=== PATIENT | male | born 1970 | race Caucasian/White ===

== ENCOUNTER 2017-02-17 11:36 | Inpatient (IN) | payer MEDICAID ==
[~2017-02-17] VITALS: Ht 172.7 cm; Wt 78.0 kg
[~2017-02-17 11:36] MED LIST: MECL25TA2 PO
[2017-02-17] MEDS ORDERED: morphine 4 MG/ML VIAL IV STA (13:02)
[2017-02-17] MEDS ORDERED: ONDANSETRON 4 MG INJ IV STA (13:02)
[2017-02-17 13:26] LABS: MEAN CORPUSCULAR VOLUME 85.9 fl (82.0-101.0); MEAN PLATELET VOLUME 10.5 fl (7.4-10.4); PLATELET COUNT 168 10^3/UL (140-415); POSITIVE DIFF @See below; RED BLOOD COUNT 4.53 10^6/ul (4.70-6.10); RED CELL DISTRIBUTION WIDTH 12.7 % (11.5-14.5); WHITE BLOOD COUNT 11.9 10^3/ul (4.8-10.8)
[2017-02-17 13:28] LABS: MEAN CORPUSCULAR HEMOGLOBIN 38.9 pg (29.0-33.0); MEAN CORPUSCULAR HGB CONC 45.2 g/dl (32.0-37.0)
[2017-02-17 13:45] LABS: ALBUMIN 4.1 g/dl (3.3-4.9); BILIRUBIN,INDIRECT 0.6 mg/dl (0-1.1); BILIRUBIN,TOTAL 0.6 mg/dl (0.2-1.3); CALCIUM 8.7 mg/dl (8.4-10.2); CREATININE 0.82 mg/dl (0.61-1.24); POTASSIUM 4.1 mmol/L (3.5-5.1); TOTAL PROTEIN 8.2 g/dl (6.1-8.1)
[2017-02-17 13:57] LABS: ANISOCYTOSIS 2+ (0-0); EOSINOPHILS % (M) 1 % (0-7); GIANT THROMBO% (M) 2 % (0-0); MICROCYTOSIS 1+ (0-0); MONOCYTES % (M) 3 % (0-11); PLATELET ESTIMATE NORMAL; POIKILOCYTOSIS 1+ (0-0); POLYCHROMASIA 3+ (0-0)
[2017-02-17 14:21] LABS: ADD UMIC YES; UR BILIRUBIN (Dip) 1+ (NEGATIVE); UR BLOOD (Dip) 3+ (NEGATIVE); UR CLARITY CLOUDY (CLEAR); UR COLOR YELLOW (YELLOW); UR GLUCOSE (Dip) NEGATIVE (NEGATIVE); UR KETONES (Dip) 1+ (NEGATIVE); UR LEUKOCYTE ESTERASE (Dip) NEGATIVE (NEGATIVE); UR NITRITE (Dip) NEGATIVE (NEGATIVE); UR TOTAL PROTEIN (Dip) 2+ (NEGATIVE); UR UROBILINOGEN (Dip) 0.2 E.U./dL (0.1-1.0)
[2017-02-17 14:30] LABS: LYMPHOCYTES # 1.4 10^3/ul (0.8-2.9); MONOCYTE # 1.1 10^3/ul (0.3-0.9); NEUTROPHIL # 9.2 10^3/ul (1.6-7.5)
[2017-02-17] MEDS ORDERED: SOD CHLORIDE 0.9% 1,000 ML IV ONE ×2 (14:30→15:30)
[2017-02-17 14:36] LABS: UR BACTERIA FEW /HPF (NONE SEEN); URINE RBCS 0-2 /HPF (0)
[2017-02-17 14:37] LABS: ICTOTEST NEGATIVE (NEGATIVE); UR MUCUS RARE /HPF (NONE SEEN)
[2017-02-17] MEDS ORDERED: HYDROmorphONE 1 MG/ML SYG IV STA (14:42)
--- NOTE | 2017-02-17 14:58 | RADRPT ---
PROCEDURE: CT abdomen and pelvis without IV contrast. CLINICAL INDICATION: Abdominal pain TECHNIQUE: CT scan of the abdomen and pelvis without contrast was performed on the [employer] volumetric [address] scanner. The patient was scanned without intravenous contrast. Coronal and sagittal refo rmatted images were obtained from the axial source images. The CTDI vol is 15.98 mGy and the DLP is 1020.76 mGy-cm. COMPARISON: None. FINDINGS: CT abdomen: The lung bases are clear. The heart size is not enlarged and is without pericardial thickening or e ffusion. The liver is enlarged with fatty infiltration and measures 21.9 cm in size and is without focal mass or intrahepatic biliary dilatation. The spleen is enlarged measuring 15 cm in size. The spleen is h omogeneous in density. The stomach is grossly unremarkable. the pancreatic tail is enlarged with i nflammatory changes in the pancreatic and peripancreatic region of the pancreatic tail. No focal fl uid collection or stenosis is seen. The remainder of the pancreas is normal in size and attenuation . The pancreatic duct is normal in caliber. The gallbladder and biliary tree are unremarkable and t here is no evidence for common bile duct dilatation. The adrenal glands are symmetric and normal. The kidneys are symmetrically unremarkable as well. Bilateral renal cysts are seen. No renal calculu s or obstructive uropathy or mass lesion is seen. The aorta is of normal in caliber. There is no retroperitoneal lymphadenopathy. The meg hepatis region is clear. The small and large bowel and mesentery, as visualized, are unremarkable. A calcif ication is seen in the appendiceal lumen consistent with an appendicolith. The appendix is otherwise unremarkable in size and caliber. CT pelvis: The pelvic organs are normal. The pelvic sidewalls and inguinal regions are clear. No pelvic mass, lymphadenopathy, or free fluid is seen. No acute inflammation is seen. The urinary bladder is wit hin normal limits. The surrounding osseous structures are unremarkable. No osteolytic or osteoblastic lesion is detect ed. IMPRESSION: 1. Acute pancreatitis as described above. Correlation with amylase and lipase levels may be of maritza ue as clinically warranted. 2. Hepatosplenomegaly with fatty infiltration of the liver. 3. Appendicolith in the appendix which is otherwise normal. RPTAT: HPNM Torsten Giraldo, Physician Date Time Electronically viewed and signed by Torsten Giraldo, Physician on 02/17/2017 14:57 /
--- NOTE | 2017-02-17 15:13 | ERD ---
ER Documentation Chief Complaint Date/Time DATE: 02/17/17 TIME: 15:10 Chief Complaint FLANK PAIN X 1 DAY HPI This a 38-year-old male presents to the emergency department today complaining of left-sided flank pain for the past 2 days. States he has some nausea. States he has pain that goes around to the front of his stomach. States has been taking paracetamol for pain. States that he had something similar 30 years ago. Denies any fevers or chills. ROS All systems reviewed and are negative except as per history of present illness. Medications Home Meds Active Scripts Meclizine Hcl* (Antivert*) 25 Mg Tablet, 25 MG PO Q6H Y for DIZZINESS, #30 TAB Prov:JANEL PINEDA MD 03/12/16 Allergies Allergies: Coded Allergies: No Known Allergy (Unverified , 03/12/16) PMhx/Soc Medical and Surgical Hx: pt denies Medical Hx History of Surgery: Yes (R shoulder) Anesthesia Reaction: No Hx Neurological Disorder: No Hx Respiratory Disorders: No Hx Cardiac Disorders: No Hx Psychiatric Problems: No Hx Miscellaneous Medical Probl: No Hx Alcohol Use: No Hx Substance Use: No Hx Tobacco Use: No Smoking Status: Never smoker Physical Exam Vitals Vital Signs Date Time Temp Pulse Resp B/P Pulse Ox O2 Delivery O2 Flow Rate FiO2 02/17/17 11:43 98.0 77 18 169/96 99 Physical Exam Const: No acute distress Head: Atraumatic Eyes: Normal Conjunctiva ENT: Normal External Ears, Nose and Mouth. Neck: Full range of motion..~ No meningismus. Resp: Clear to auscultation bilaterally Cardio: Regular rate and rhythm, no murmurs Abd: Soft, left lower quadrant pain non distended. Normal bowel sounds. No epigastric pain. No right upper quadrant pain. No right lower quadrant pain. Skin: No petechiae or rashes Back: No midline tenderness. Left-sided flank tenderness. No CVA tenderness. Ext: No cyanosis, or edema Neur: Awake and alert Psych: Normal Mood and Affect Result Diagram: 02/17/17 1310 02/17/17 1310 Results 24 hrs Laboratory Tests Test 02/17/17 12:07 02/17/17 13:10 Urine Color YELLOW Urine Clarity CLOUDY Urine pH 5.5 Urine Specific [place] >=1.030 Urine Ketones 1+ Urine Nitrite NEGATIVE Urine Bilirubin 1+ Urine Ictotest NEGATIVE Urine Urobilinogen 0.2 E.U./dL Urine Leukocyte Esterase NEGATIVE Urine Microscopic RBC 0-2/HPF Urine Microscopic WBC 0-2/HPF Urine Bacteria FEW/HPF Urine Mucus RARE/HPF Urine Hemoglobin 3+ Urine Glucose NEGATIVE% Urine Total Protein 2+ White Blood Count 11.910^3/ul Red Blood Count 4.5310^6/ul Hemoglobin 13.5g/dl Hematocrit 37.4% Mean Corpuscular Volume 85.9fl Mean Corpuscular Hemoglobin 38.9pg Mean Corpuscular Hemoglobin Concent 45.2g/dl Red Cell Distribution Width 12.7% Platelet Count 80231^3/UL Mean Platelet Volume 10.5fl Neutrophils % 77.0% Segmented Neutrophils % (Manual) 74% Band Neutrophils % (Manual) 1% Lymphocytes % 12.0% Lymphocytes % (Manual) 21% Monocytes % 9.0% Monocytes % (Manual) 3% Eosinophils % 1.0% Eosinophils % (Manual) 1% Basophils % 0.3% Nucleated Red Blood Cells % 0.0/100WBC Neutrophils # 9.210^3/ul Neutrophils # (Manual) 9.910^3/ul Band Neutrophils # 9.210^3/ul Absolute Lymphocytes (Manual) 2.410^3/ul Lymphocytes # 1.410^3/ul Monocytes # 1.110^3/ul Absolute Monocytes (Manual) 0.310^3/ul Eosinophils # 0.110^3/ul Basophils # 0.010^3/ul Nucleated Red Blood Cells # 0.310^3/ul Smudge Cells % 31% Thrombocytosis 2% Platelet Estimate NORMAL Polychromasia 3+ Poikilocytosis 1+ Anisocytosis 2+ Microcytosis 1+ Sodium Level 141mmol/L Potassium Level 4.1mmol/L Chloride Level 99mmol/L Carbon Dioxide Level 20mmol/L Anion Gap 26 Blood Urea Nitrogen 12mg/dl Creatinine 0.82mg/dl Glucose Level 188mg/dl Calcium Level 8.7mg/dl Total Bilirubin 0.6mg/dl Direct Bilirubin 0.00mg/dl Indirect Bilirubin 0.6mg/dl Aspartate Amino Transf (AST/SGOT) 23IU/L Alanine Aminotransferase (ALT/SGPT) 54IU/L Alkaline Phosphatase 69IU/L Total Protein 8.2g/dl Albumin 4.1g/dl Globulin 4.10g/dl Albumin/Globulin Ratio 1.00 Lipase 1413U/L Current Medications Medications (Trade) Dose Ordered Sig/Andres Route PRN Reason Start Time Stop Time Status Last Admin Dose Admin Morphine Sulfate (morphine) 4 mg ONCE STAT IV 02/17/17 13:02 02/17/17 13:07 DC 02/17/17 13:22 Ondansetron HCl 4 mg 4 mg ONCE STAT IV 02/17/17 13:02 02/17/17 13:07 DC 02/17/17 13:22 Sodium Chloride (NS) 1,000 ml @ 1,000 mls/hr Q1H ONCE IV 02/17/17 14:30 02/17/17 15:29 DC 02/17/17 14:11 Hydromorphone HCl 1 mg 1 mg ONCE STAT IV 02/17/17 14:42 02/17/17 14:43 DC 02/17/17 14:54 Sodium Chloride (NS) 1,000 ml @ 2,000 mls/hr Q30M ONCE IV 02/17/17 15:30 02/17/17 15:59 DC 02/17/17 15:39 Ondansetron HCl (Zofran Inj) 4 mg BRIDGE ORDER PRN IV NAUSEA AND/OR VOMITING 02/17/17 15:30 02/18/17 15:29 Acetaminophen (Tylenol Tab) 650 mg ER BRIDGE PRN PO MILD PAIN/FEVER 02/17/17 15:30 02/18/17 15:29 IV Flush (NS 3 ml) 3 ml PER PROTOCOL IV 02/17/17 16:30 Ondansetron HCl (Zofran Inj) 4 mg Q6H PRN IV NAUSEA AND/OR VOMITING 02/17/17 16:30 Morphine Sulfate (morphine) 2 mg Q4H PRN IV SEVERE PAIN LEVEL 7-10 02/17/17 16:30 Pantoprazole (Protonix Iv) 40 mg DAILY@06 IV 02/17/17 16:30 Hydralazine HCl (Apresoline) 10 mg Q4H PRN IV SBP>160 02/17/17 16:30 DIAGNOSTIC IMAGING REPORT Patient: ANDREA MONTERO : 1970 Age: 46 Sex: M MR #: [id number] DOS: 02/17/17 1302 Ordering MD: TRISTON MEDINA PA-C Location: [facility] Room/Bed: PROCEDURE: CT abdomen and pelvis without IV contrast. CLINICAL INDICATION: Abdominal pain TECHNIQUE: CT scan of the abdomen and pelvis without contrast was performed on the [employer] volumetric [address] scanner. The patient was scanned without intravenous contrast. Coronal and sagittal reformatted images were obtained from the axial source images. The CTDI vol is 15.98 mGy and the DLP is 1020.76 mGy-cm. COMPARISON: None. FINDINGS: CT abdomen: The lung bases are clear. The heart size is not enlarged and is without pericardial thickening or effusion. The liver is enlarged with fatty infiltration and measures 21.9 cm in size and is without focal mass or intrahepatic biliary dilatation. The spleen is enlarged measuring 15 cm in size. The spleen is homogeneous in density. The stomach is grossly unremarkable. the pancreatic tail is enlarged with inflammatory changes in the pancreatic and peripancreatic region of the pancreatic tail. No focal fluid collection or stenosis is seen. The remainder of the pancreas is normal in size and attenuation. The pancreatic duct is normal in caliber. The gallbladder and biliary tree are unremarkable and there is no evidence for common bile duct dilatation. The adrenal glands are symmetric and normal. The kidneys are symmetrically unremarkable as well. Bilateral renal cysts are seen. No renal calculus or obstructive uropathy or mass lesion is seen. The aorta is of normal in caliber. There is no retroperitoneal lymphadenopathy. The meg hepatis region is clear. The small and large bowel and mesentery, as visualized, are unremarkable. A calcification is seen in the appendiceal lumen consistent with an appendicolith. The appendix is otherwise unremarkable in size and caliber. CT pelvis: The pelvic organs are normal. The pelvic sidewalls and inguinal regions are clear. No pelvic mass, lymphadenopathy, or free fluid is seen. No acute inflammation is seen. The urinary bladder is within normal limits. The surrounding osseous structures are unremarkable. No osteolytic or osteoblastic lesion is detected. IMPRESSION: 1. Acute pancreatitis as described above. Correlation with amylase and lipase levels may be of value as clinically warranted. 2. Hepatosplenomegaly with fatty infiltration of the liver. 3. Appendicolith in the appendix which is otherwise normal. RPTAT: HPNM Physician Leisa Date Time Electronically viewed and signed by Torsten Giraldo Physician on 02/17/2017 14 :57 / CC: TRISTON MEDINA PA-C Procedures/MDM This is a 46-year-old male who presents the emergency department today complaining of left-sided flank pain and left sided abdominal pain. This is the patient's second visit to the emergency room however his first visit for flank and abdominal pain. I did obtain laboratory workup as well as imaging Laboratory workup shows a mildly elevated white blood cell count. He is not anemic. Platelets are within normal limits. Electrolytes are within normal limits. Glucose is within normal limits. Liver enzymes are within normal limits. Lipase is elevated 3 times upper limit of normal at 1413. UA is negative for infection or hematuria CT abdomen pelvis noncontrast shows acute pancreatitis. The pancreatic tail is enlarged with inflammatory changes in the pancreatic and peripancreatic region of the pancreatic tail. There is no focal fluid collection or stenosis. The gallbladder and biliary tree are unremarkable and there is no evidence for common bile duct dilatation. There are bilateral renal cyst. There is no renal calculus or obstructive uropathy or mass lesion seen. There is no pelvic mass, lymphadenopathy or free fluid seen. There is no acute inflammation. There is an appendicolith in the appendix which is otherwise normal. Patient symptoms at this time is consistent with acute pancreatitis. I have explained the results to him and patient agreed to be admitted to the hospital Patient was given morphine, Zofran here in the emergency department and pain persisted. He was then given Dilaudid. Patient was given 3 L of fluids here in the emergency department. I discussed the patient with Dr. Snow and he is agreed to admit the patient. Any further orders placed will be completed by or the admitting physician. Departure Diagnosis: Primary Impression: Acute pancreatitis Pancreatitis type: unspecified pancreatitis type Acute pancreatitis complication: no infection or necrosis Qualified Code: K85.90 - Acute pancreatitis without infection or necrosis, unspecified pancreatitis type Condition: Fair TRISTON MEDINA PA-C Feb 17, 2017 15:13
[2017-02-17] MEDS ORDERED: ACETAMINOPHEN 325 MG TAB PO PRN (15:30)
[2017-02-17] MEDS ORDERED: ONDANSETRON 4 MG INJ IV PRN ×2 (15:30→16:30)
[2017-02-17 15:58] LABS: BASOPHILS % 0.3 % (0.0-2.0); EOSINOPHILS # 0.1 10^3/ul (0.0-0.5); NUCLEATED RED BLOOD CELLS # 0.3 10^3/ul (0.0-0.0)
[2017-02-17 16:03] LABS: HEMATOCRIT 37.4 % (42.0-52.0); HEMOGLOBIN 13.5 g/dl (14.0-18.0)
[2017-02-17] MEDS ORDERED: morphine 2 MG INJ IV PRN (16:30)
[2017-02-17] MEDS ORDERED: DEXTROSE 5%-0.45% NACL 1,000 ML IV SCH (16:30)
[2017-02-17] MEDS ORDERED: hydrALAzine 20 MG INJ IV PRN (16:30)
[2017-02-17] MEDS ORDERED: NACL 0.9% 3 ML SYG IV SCH (16:30)
--- NOTE | 2017-02-17 16:32 | HP ---
Date/Time of Note Date/Time of Note DATE: 02/17/17 TIME: 16:19 Assessment/Plan VTE Prophylaxis VTE Prophylaxis Intervention: SCD's Assessment/Plan Chief Complaint/Hosp Course Patient is a 46-year-old male with a past medical history of alcohol use who presents to [facility] with abdominal pain, found to have pancreatitis Assessment Abdominal pain, epigastric Pancreatitis Alcohol use Anion gap metabolic acidosis, mild Smudge cells HTN Plan -Aggressive fluids, n.p.o., pain control -Serial CRP -No NG tube for now, patient is not nauseated -ABG, lactic acid -Protonix for possible gastritis involvement and n.p.o. status -Afebrile no other signs of infection except for reactive cell lines and CBC, if worsening we will start antibiotics -Patient has a large number of smudge cells, will have to follow up outpatient with a reprint sorter, questionable CLL Gabriele Vo DO Problems: HPI/ROS Admit Date/Time Admit Date/Time Hx of Present Illness Patient is a 46-year-old male with no significant past medical history except for frequent alcohol use who presents to [facility] for approximately 5 day history of epigastric abdominal pain patient denies any nausea or vomiting however does state that the pain has been worsening since Monday. Patient states that he drinks fairly heavily Monday and Monday and that is when the pain started. Patient does not have a primary care provider. PMH: Alcohol use PSH: Right shoulder tendon surgery, left wrist surgery with hardware Social: Weekend alcohol use, denies smoking, denies drugs Meds: None PMH/Family/Social Social History Smoking Status: Never smoker Exam/Review of Systems Vital Signs Vitals Vital Signs Date Time Temp Pulse Resp B/P Pulse Ox O2 Delivery O2 Flow Rate FiO2 02/17/17 11:43 98.0 77 18 169/96 99 Exam Exam Physical exam General: Patient is laying in bed and answers questions appropriately Mentation: Patient is alert and oriented 4, Head: Normocephalic atraumatic Eyes: EOMI, pupils reactive to light Neck: Supple, nontender, midline Respiratory: Clear to auscultation bilaterally Cardiovascular: regular rate, no obvious murmurs Gastrointestinal: mildly tender to palpation in upper quadrants, bowel sounds heard. Neurological: Moves all extremities spontaneously Skin: No new skin lesions Labs Result Diagram: 02/17/17 1310 02/17/17 1310 Medications Medications Current Medications Ondansetron HCl (Zofran Inj) 4 mg Q6H PRN IV NAUSEA AND/OR VOMITING; Start at 16:30 Morphine Sulfate (morphine) 2 mg Q4H PRN IV SEVERE PAIN LEVEL 7-10; Start 02/17 at 16:30 Pantoprazole (Protonix Iv) 40 mg DAILY@06 IV ; Start 02/17/17 at 16:30 Hydralazine HCl (Apresoline) 10 mg Q4H PRN IV SBP>160; Start 02/17/17 at 16:30 GABRIELE VO Feb 17, 2017 16:31
[2017-02-17] MEDS ORDERED: NAPR-688 PO (16:51)
[2017-02-17 17:07] VITALS: TEMP 99.7
[2017-02-17 18:22] VITALS: Ht 172.7 cm; Wt 78.0 kg
[2017-02-17 18:24] VITALS: BP 159/101; PULSE 79; RESP 19
[2017-02-17] MEDS: morphine 4 MG/ML VIAL IV PRN ×2 (18:44→22:45)
[2017-02-17] MEDS: SOD CHLORIDE 0.9% 1,000 ML IV SCH (18:52)
[2017-02-17] MEDS: PANTOPRAZOLE 40 MG INJ IV SCH (19:01)
[2017-02-17 20:00] VITALS: BP 153/95; RESP 18
[2017-02-17 20:23] LABS: C-REACTIVE PROTEIN 3.5 mg/dl (0.0-0.9)
[2017-02-17 21:11] LABS: TRIGLYCERIDES > 1575 mg/dl (0-149)
[2017-02-18] VITALS (13 sets, daily range): BP systolic 127–160; BP diastolic 76–104; PULSE 87–96; RESP 14–25
[2017-02-18] MEDS: SOD CHLORIDE 0.9% 1,000 ML IV SCH ×4 (00:31→10:58)
[2017-02-18 01:28] LABS: AADO2 Arterial 34.9 mmHg (7.0-24.0); Allen Test ACCEPTAB; Arterial Base Excess 0.8 mmol/L (-3.0-3); Arterial COHb 0.3 % (0.0-3.0); Arterial Fraction of Oxyhgb 92.5 % (93.0-99.0); Arterial HCO3 25.6 mmol/L (22.0-26.0); Arterial MetHb 0.5 % (0.0-1.5); Arterial Total Hemglobin 13.4 g/dl (12.0-18.0); MODE ROOM AIR
[2017-02-18] MEDS: ACCU-CHEK XX SCH ×11 (01:51→23:00)
[2017-02-18] MEDS: morphine 4 MG/ML VIAL IV PRN ×2 (03:10→07:34)
[2017-02-18] MEDS: PANTOPRAZOLE 40 MG INJ IV SCH (05:15)
[2017-02-18 05:54] LABS: BASOPHILS % 0.2 % (0.0-2.0); EOSINOPHILS # 0.1 10^3/ul (0.0-0.5); EOSINOPHILS % 0.4 % (0.0-7.0); LYMPHOCYTES # 1.5 10^3/ul (0.8-2.9); LYMPHOCYTES % 11.8 % (15.0-51.0); MEAN PLATELET VOLUME 11.1 fl (7.4-10.4); MONOCYTE # 0.7 10^3/ul (0.3-0.9); MONOCYTES % 5.9 % (0.0-11.0); NEUTROPHIL # 10.1 10^3/ul (1.6-7.5); NEUTROPHILS % 81.1 % (39.0-77.0); POSITIVE DIFF @See below; WHITE BLOOD COUNT 12.5 10^3/ul (4.8-10.8)
[2017-02-18 06:39] LABS: CALCIUM 8.4 mg/dl (8.4-10.2); CREATININE 0.82 mg/dl (0.61-1.24); MAGNESIUM 1.7 mg/dl (1.7-2.5); PHOSPHORUS 3.3 mg/dl (2.5-4.9); POTASSIUM 4.6 mmol/L (3.5-5.1)
[2017-02-18 07:17] LABS: C-REACTIVE PROTEIN 6.4 mg/dl (0.0-0.9)
[2017-02-18 08:32] LABS: BILIRUBIN,INDIRECT 0.6 mg/dl (0-1.1); BILIRUBIN,TOTAL 0.6 mg/dl (0.2-1.3); TOTAL PROTEIN 7.7 g/dl (6.1-8.1)
[2017-02-18 08:33] LABS: ALBUMIN 4.3 g/dl (3.3-4.9)
[2017-02-18 10:12] LABS: CHOL/HDL RATIO 8.2 RATIO
[2017-02-18 10:28] LABS: HEMATOCRIT 35.5 % (42.0-52.0); MEAN CORPUSCULAR HEMOGLOBIN 31.3 pg (29.0-33.0); MEAN CORPUSCULAR HGB CONC 34.1 g/dl (32.0-37.0); PLATELET COUNT 163 10^3/UL (140-415); RED CELL DISTRIBUTION WIDTH 13.6 % (11.5-14.5)
[2017-02-18 10:29] LABS: HEMOGLOBIN 12.1 g/dl (14.0-18.0)
[2017-02-18] MEDS ORDERED: DEXTROSE 50% 50 ML SYRINGE IV PRN ×2 (12:00)
[2017-02-18] MEDS: DEXTROSE 5%-0.45% NACL 1,000 ML IV SCH ×3 (12:00→18:57)
[2017-02-18] MEDS: INSULIN HUMAN REGULAR 100 UNIT in SOD CHLORIDE 0.9% 99 ML IV SCH (13:44)
[2017-02-18] MEDS: PIPER-TAZO 3.375 GM IV (PMX) 100 ML IVPB SCH ×2 (14:00→17:34)
--- NOTE | 2017-02-18 14:14 | PN ---
Date/Time of Note Date/Time of Note DATE: 02/18/17 TIME: 14:09 Assessment/Plan VTE Prophylaxis VTE Prophylaxis Intervention: SCD's Lines/Catheters IV Catheter Type (from Nrs): Peripheral IV Urinary Cath still in place: No Assessment/Plan Chief Complaint/Hosp Course Patient is a 46-year-old male with a past medical history of alcohol use who presents to [facility] with abdominal pain, found to have pancreatitis Assessment Abdominal pain, epigastric Pancreatitis hypertriglyceridemia Alcohol use Anion gap metabolic acidosis, mild Smudge cells Plan -Patient has elevated triglycerides, upgraded to ICU,fixed insulin drip at 2 units, D5 half-normal saline for fluids, goal is triglycerides less than 500 -Patient developed fever, blood cultures ordered, Zosyn started, lactic acid ordered -Continue with pain control -Continue n.p.o. for now as to give patient bowel rest -Repeat labs in the morning Gabriele Vo DO Problems: Subjective 24 Hr Interval Summary Free Text/Dictation no acute issues overnight Exam/Review of Systems Vital Signs Vitals Vital Signs Date Time Temp Pulse Resp B/P Pulse Ox O2 Delivery O2 Flow Rate FiO2 02/18/17 14:00 92 23 159/98 95 Room Air 02/18/17 13:25 101.0 Intake and Output 02/17/17 02/17/17 02/18/17 15:00 23:00 07:00 Intake Total 2000 ml Balance 2000 ml Exam Physical exam General: Patient is laying in bed and answers questions appropriately Mentation: Patient is alert and oriented 4, Head: Normocephalic atraumatic Eyes: EOMI, pupils reactive to light Neck: Supple, nontender, midline Respiratory: Clear to auscultation bilaterally Cardiovascular: regular rate, no obvious murmurs Gastrointestinal: mildly tender to palpation, bowel sounds heard. Neurological: Moves all extremities spontaneously Skin: No new skin lesions Results Result Diagram: 02/18/17 0447 02/18/177 Results 24 hrs Laboratory Tests Test 02/17/17 17:00 02/17/17 19:30 02/18/17 04:47 02/18/17 13:40 Blood Gas Specimen Source Blood arterial Arterial Blood Date Drawn 02/18/2017 1:20:31 AM Arterial Blood pH (Temp corrected) 7.405 Arterial Blood pCO2 (Temp correct) 41.8 Arterial Blood pO2 (Temp corrected) 64.8 L Arterial Blood HCO3 25.6 Arterial Blood Base Excess 0.8 Arterial Blood Oxygen Saturation 93.2 L Ted Test ACCEPTAB Arterial Blood Gas Puncture Site Right Radial Arterial Blood Carboxyhemoglobin 0.3 Arterial Blood Methemoglobin 0.5 Blood Gas A-a O2 Differential 34.9 H Oxyhemoglobin Percent 92.5 L Total Hemoglobin 13.4 Blood Gas Temperature 37.0 Blood Gas Actual Respiration Rate 18 Blood Gas Modality ROOM AIR FiO2 21.0 Blood Gas Notified Whom Blood Gas Notified Time 02/18/2017 1:28:10 AM Lactic Acid Level 0.9 C-Reactive Protein 3.5 H 6.4 H Triglycerides Level > 1575 H 708 H Salicylates Level < 1.0 L Acetaminophen Level < 10.0 L White Blood Count 12.5 H Red Blood Count 4.00 L Hemoglobin 12.1 L Hematocrit 35.5 L Mean Corpuscular Volume 92.0 Mean Corpuscular Hemoglobin 31.3 Mean Corpuscular Hemoglobin Concent 34.1 # Red Cell Distribution Width 13.6 Platelet Count 163 Mean Platelet Volume 11.1 H Neutrophils % 81.1 H Lymphocytes % 11.8 L Monocytes % 5.9 Eosinophils % 0.4 Basophils % 0.2 Nucleated Red Blood Cells % 0.0 Neutrophils # 10.1 H Lymphocytes # 1.5 Monocytes # 0.7 Eosinophils # 0.1 Basophils # 0.0 Nucleated Red Blood Cells # 0.0 Sodium Level 142 Potassium Level 4.6 Chloride Level 102 Carbon Dioxide Level 23 Anion Gap 22 H Blood Urea Nitrogen 7 Creatinine 0.82 Glucose Level 162 Calcium Level 8.4 Phosphorus Level 3.3 Magnesium Level 1.7 Total Bilirubin 0.6 Direct Bilirubin 0.00 Indirect Bilirubin 0.6 Aspartate Amino Transf (AST/SGOT) 39 # Alanine Aminotransferase (ALT/SGPT) 32 Alkaline Phosphatase 46 Total Protein 7.7 Albumin 4.3 Cholesterol Level 156 LDL Cholesterol, Calculated HDL Cholesterol 19 L Cholesterol/HDL Ratio 8.2 Bedside Glucose 177 Medications Medications Current Medications Ondansetron HCl (Zofran Inj) 4 mg Q6H PRN IV NAUSEA AND/OR VOMITING; Start at 16:30 Pantoprazole (Protonix Iv) 40 mg DAILY@06 IV Last administered on 02/18/17t 05: 15; Admin Dose 40 MG; Start 02/17/17 at 16:30 Hydralazine HCl (Apresoline) 10 mg Q4H PRN IV SBP>160; Start 02/17/17 at 16:30 Morphine Sulfate (morphine) 4 mg Q4H PRN IV SEVERE PAIN LEVEL 7-10 Last administered on 02/18/17 07:34; Admin Dose 4 MG; Start 02/17/17 at 20:30 Diagnostic Test (Pha) 1 ea 1 ea Q1H XX Last administered on 02/18/17 13:42; Admin Dose 1 EA; Start 02/18/17 at 13:00 Insulin Human Regular/Sodium Chloride (Novolin-R/NS) 100 ml @ 2 mls/hr IV IV Last administered on 02/18/17 13:44; Admin Dose 2 MLS/HR; Start 02/18/17 at 13: 00 Dextrose (D50w Syringe) 25 ml Q15M PRN IV Till BS 80 mg/dL or above x2; Start 02/18/17 at 12:00 Dextrose 50 ml 50 ml Q15M PRN IV Till BS 80 mg/dL or above x2; Start 02/18/17 at 12:00 Dextrose/Sodium Chloride 1,000 ml @ 150 mls/hr Q6H40M IV Last administered on 02/18/17 12:00; Admin Dose 150 MLS/HR; Start 02/18/17 at 12:00 Piperacillin Sod/ Tazobactam Sod (Zosyn 3.375gm/ 100 ml (Pmx)) 100 ml @ 200 mls /hr Q6 IVPB ; Start 02/18/17 at 14:00 GABRIELE VO Feb 18, 2017 14:14
[2017-02-18] MEDS ORDERED: ACETAMINOPHEN 650 MG SUPP PR PRN (14:30)
[2017-02-19] VITALS (24 sets, daily range): BP systolic 125–153; BP diastolic 79–100; PULSE 75–89; RESP 16–25
[2017-02-19] MEDS: ACCU-CHEK XX SCH ×25 (01:00→23:51)
[2017-02-19] MEDS: DEXTROSE 5%-0.45% NACL 1,000 ML IV SCH ×3 (01:48→21:51)
[2017-02-19] MEDS: PIPER-TAZO 3.375 GM IV (PMX) 100 ML IVPB SCH ×5 (01:51→23:51)
[2017-02-19] MEDS: PANTOPRAZOLE 40 MG INJ IV SCH (05:27)
[2017-02-19 06:02] LABS: CALCIUM 8.7 mg/dl (8.4-10.2); CREATININE 0.85 mg/dl (0.61-1.24); PHOSPHORUS 2.7 mg/dl (2.5-4.9); POTASSIUM 3.6 mmol/L (3.5-5.1)
[2017-02-19 07:48] LABS: CHOL/HDL RATIO 11.9 RATIO
[2017-02-19 08:32] LABS: ABNORMAL IP MESSAGE 1; BASOPHILS % 0.2 % (0.0-2.0); EOSINOPHILS # 0.1 10^3/ul (0.0-0.5); EOSINOPHILS % 0.7 % (0.0-7.0); HEMATOCRIT 38.1 % (42.0-52.0); LYMPHOCYTES # 1.2 10^3/ul (0.8-2.9); LYMPHOCYTES % 9.4 % (15.0-51.0); MEAN CORPUSCULAR HEMOGLOBIN 30.9 pg (29.0-33.0); MEAN CORPUSCULAR HGB CONC 34.4 g/dl (32.0-37.0); MEAN CORPUSCULAR VOLUME 89.9 fl (82.0-101.0); MEAN PLATELET VOLUME 11.8 fl (7.4-10.4); MONOCYTE # 0.6 10^3/ul (0.3-0.9); MONOCYTES % 5.1 % (0.0-11.0); NEUTROPHIL # 10.3 10^3/ul (1.6-7.5); NEUTROPHILS % 83.9 % (39.0-77.0); NUCLEATED RED BLOOD CELLS # 0.1 10^3/ul (0.0-0.0); NUCLEATED RED BLOOD CELLS% 0.7 /100WBC (0.0-0.0); POSITIVE DIFF @See below; RED BLOOD COUNT 4.24 10^6/ul (4.70-6.10); RED CELL DISTRIBUTION WIDTH 13.5 % (11.5-14.5); WHITE BLOOD COUNT 12.3 10^3/ul (4.8-10.8)
[2017-02-19 08:36] LABS: HEMOGLOBIN 13.1 g/dl (14.0-18.0); PLATELET COUNT 120 10^3/UL (140-415)
[2017-02-19 09:58] LABS: C-REACTIVE PROTEIN 17.8 mg/dl (0.0-0.9)
--- NOTE | 2017-02-19 11:31 | PN ---
Date/Time of Note Date/Time of Note DATE: 02/19/17 TIME: 11:28 Assessment/Plan VTE Prophylaxis VTE Prophylaxis Intervention: SCD's Lines/Catheters IV Catheter Type (from [facility]): Peripheral IV Urinary Cath still in place: No Assessment/Plan Chief Complaint/Hosp Course Patient is a 46-year-old male with a past medical history of alcohol use who presents to [facility] with abdominal pain, found to have pancreatitis Assessment Abdominal pain, epigastric Pancreatitis hypertriglyceridemia Alcohol use Anion gap metabolic acidosis, mild Smudge cells Plan -Patient has elevated triglycerides, in ICU,fixed insulin drip at 2 units, D5 half-normal saline for fluids, goal is triglycerides less than 500. higher today than yesterday. more aggressive fluids, may have to increase insulin drip. -Patient developed fever, blood cultures ordered, Zosyn started, lactic acid repeat was WNL -titrate D5w to keep glucose <180 -added NS at 100 to supplement fluids. -Continue with pain control -Continue n.p.o. for now as to give patient bowel rest -Repeat labs in the morning Gabriele Castanon DO Problems: Subjective 24 Hr Interval Summary Free Text/Dictation minimal abdominal pain no other acute complaints Exam/Review of Systems Vital Signs Vitals Vital Signs Date Time Temp Pulse Resp B/P Pulse Ox O2 Delivery O2 Flow Rate FiO2 02/19/17 11:21 100.5 02/19/17 11:00 87 19 137/91 95 Room Air Intake and Output 02/18/17 02/18/17 02/19/17 15:00 23:00 07:00 Intake Total 404 ml 635 ml 1623 ml Output Total 1550 ml 700 ml Balance 404 ml -915 ml 923 ml Exam Physical exam General: Patient is laying in bed and answers questions appropriately Mentation: Patient is alert and oriented 4, Head: Normocephalic atraumatic Eyes: EOMI, pupils reactive to light Neck: Supple, nontender, midline Respiratory: Clear to auscultation bilaterally Cardiovascular: regular rate, no obvious murmurs Gastrointestinal: mildly tender to palpation, bowel sounds heard. Neurological: Moves all extremities spontaneously Skin: No new skin lesions Results Result Diagram: 02/19/17 0430 02/19/17 0430 Results 24 hrs Laboratory Tests Test 02/18/17 13:40 02/18/17 14:25 02/18/17 14:35 02/18/17 15:18 Bedside Glucose 177 194 185 Lactic Acid Level 0.9 Test 02/18/17 16:33 02/18/17 17:14 02/18/17 18:27 02/18/17 19:13 Bedside Glucose 210 205 195 184 Test 02/18/17 20:06 02/18/17 21:09 02/18/17 21:52 02/18/17 23:22 Bedside Glucose 168 162 167 151 Test 02/19/17 00:02 02/19/17 01:59 02/19/17 02:57 02/19/17 04:12 Bedside Glucose 151 157 178 161 Test 02/19/17 04:30 02/19/17 06:23 02/19/17 07:01 02/19/17 07:31 White Blood Count 12.3 H Red Blood Count 4.24 L Hemoglobin 13.1 L Hematocrit 38.1 L Mean Corpuscular Volume 89.9 Mean Corpuscular Hemoglobin 30.9 Mean Corpuscular Hemoglobin Concent 34.4 Red Cell Distribution Width 13.5 Platelet Count 120 #L Mean Platelet Volume 11.8 H Neutrophils % 83.9 H Lymphocytes % 9.4 L Monocytes % 5.1 Eosinophils % 0.7 Basophils % 0.2 Nucleated Red Blood Cells % 0.7 H Neutrophils # 10.3 H Lymphocytes # 1.2 Monocytes # 0.6 Eosinophils # 0.1 Basophils # 0.0 Nucleated Red Blood Cells # 0.1 H Sodium Level 141 Potassium Level 3.6 Chloride Level 100 Carbon Dioxide Level 24 Anion Gap 21 H Blood Urea Nitrogen 8 Creatinine 0.85 Glucose Level 166 Calcium Level 8.7 Phosphorus Level 2.7 Magnesium Level 2.0 C-Reactive Protein 17.8 H Triglycerides Level 924 H Cholesterol Level 298 #H LDL Cholesterol, Calculated 88 HDL Cholesterol 25 L Cholesterol/HDL Ratio 11.9 Bedside Glucose 167 172 167 Test 02/19/17 08:40 02/19/17 09:35 02/19/17 10:17 02/19/17 11:20 Bedside Glucose 150 159 157 155 Medications Medications Current Medications Ondansetron HCl (Zofran Inj) 4 mg Q6H PRN IV NAUSEA AND/OR VOMITING; Start at 16:30 Pantoprazole (Protonix Iv) 40 mg DAILY@06 IV Last administered on 02/19/17t 05: 27; Admin Dose 40 MG; Start 02/17/17 at 16:30 Hydralazine HCl (Apresoline) 10 mg Q4H PRN IV SBP>160; Start 02/17/17 at 16:30 Morphine Sulfate (morphine) 4 mg Q4H PRN IV SEVERE PAIN LEVEL 7-10 Last administered on 02/18/17 07:34; Admin Dose 4 MG; Start 02/17/17 at 20:30 Diagnostic Test (Pha) 1 ea 1 ea Q1H XX Last administered on 02/19/17 11:18; Admin Dose 1 EA; Start 02/18/17 at 13:00 Insulin Human Regular/Sodium Chloride (Novolin-R/NS) 100 ml @ 2 mls/hr IV IV Last administered on 02/18/17 13:44; Admin Dose 2 MLS/HR; Start 02/18/17 at 13: 00 Dextrose (D50w Syringe) 25 ml Q15M PRN IV Till BS 80 mg/dL or above x2; Start 02/18/17 at 12:00 Dextrose 50 ml 50 ml Q15M PRN IV Till BS 80 mg/dL or above x2; Start 02/18/17 at 12:00 Dextrose/Sodium Chloride 1,000 ml @ 100 mls/hr Q10H IV Last administered on 01:48; Admin Dose 100 MLS/HR; Start 02/18/17 at 12:00 Piperacillin Sod/ Tazobactam Sod (Zosyn 3.375gm/ 100 ml (Pmx)) 100 ml @ 200 mls /hr Q6 IVPB Last administered on 02/19/17 11:18; Admin Dose 200 MLS/HR; Start 02/18/17 at 14:00 Acetaminophen 650 mg 650 mg Q6H PRN [place] FEVER OR MILD PAIN Last administered on 02/18/17 14:50; Admin Dose 650 MG; Start 02/18/17 at 14:30 Sodium Chloride (NS) 1,000 ml @ 100 mls/hr Q10H IV ; Start 02/19/17 at 11:30; Status GABRIELE CRYSTAL Feb 19, 2017 11:31
[2017-02-19] MEDS: SOD CHLORIDE 0.9% 1,000 ML IV SCH ×2 (12:13→21:52)
[2017-02-19] MEDS: ACETAMINOPHEN 325 MG TAB PO PRN (21:01)
[2017-02-19] MEDS: morphine 4 MG/ML VIAL IV PRN (21:51)
[2017-02-20] VITALS (19 sets, daily range): BP systolic 100–151; BP diastolic 58–104; PULSE 67–82; RESP 14–24
[2017-02-20] MEDS: ACCU-CHEK XX SCH ×10 (01:00→10:06)
[2017-02-20] MEDS: INSULIN HUMAN REGULAR 100 UNIT in SOD CHLORIDE 0.9% 99 ML IV SCH (02:33)
[2017-02-20 05:35] LABS: BASOPHILS % 0.3 % (0.0-2.0); EOSINOPHILS # 0.2 10^3/ul (0.0-0.5); HEMATOCRIT 34.6 % (42.0-52.0); HEMOGLOBIN 11.9 g/dl (14.0-18.0); LYMPHOCYTES # 1.2 10^3/ul (0.8-2.9); LYMPHOCYTES % 11.8 % (15.0-51.0); MEAN CORPUSCULAR HEMOGLOBIN 30.4 pg (29.0-33.0); MEAN CORPUSCULAR HGB CONC 34.4 g/dl (32.0-37.0); MEAN CORPUSCULAR VOLUME 88.3 fl (82.0-101.0); MEAN PLATELET VOLUME 10.7 fl (7.4-10.4); MONOCYTE # 0.7 10^3/ul (0.3-0.9); MONOCYTES % 6.6 % (0.0-11.0); NEUTROPHIL # 8.2 10^3/ul (1.6-7.5); NEUTROPHILS % 78.7 % (39.0-77.0); POSITIVE DIFF @See below; RED BLOOD COUNT 3.92 10^6/ul (4.70-6.10); RED CELL DISTRIBUTION WIDTH 13.2 % (11.5-14.5); WHITE BLOOD COUNT 10.4 10^3/ul (4.8-10.8)
[2017-02-20] MEDS: PIPER-TAZO 3.375 GM IV (PMX) 100 ML IVPB SCH ×3 (05:53→18:05)
[2017-02-20] MEDS: PANTOPRAZOLE 40 MG INJ IV SCH (05:53)
[2017-02-20 06:00] LABS: CALCIUM 8.8 mg/dl (8.4-10.2); CHOL/HDL RATIO 13.7 RATIO; CREATININE 0.89 mg/dl (0.61-1.24); MAGNESIUM 2.1 mg/dl (1.7-2.5); PHOSPHORUS 3.7 mg/dl (2.5-4.9); POTASSIUM 3.8 mmol/L (3.5-5.1)
[2017-02-20 06:25] LABS: PLATELET COUNT 149 10^3/UL (140-415)
[2017-02-20] MEDS: SOD CHLORIDE 0.9% 1,000 ML IV SCH ×2 (08:04→18:05)
[2017-02-20] MEDS: DEXTROSE 5%-0.45% NACL 1,000 ML IV SCH (08:06)
[2017-02-20 08:17] LABS: C-REACTIVE PROTEIN 16.8 mg/dl (0.0-0.9)
--- NOTE | 2017-02-20 10:15 | PN ---
Date/Time of Note Date/Time of Note DATE: 02/20/17 TIME: 10:11 Assessment/Plan VTE Prophylaxis VTE Prophylaxis Intervention: SCD's Lines/Catheters [facility] Type (from [facility]): Peripheral IV Urinary Cath still in place: No Assessment/Plan Chief Complaint/Hosp Course Assessment and plan: 1. Acute pancreatitis: Likely secondary to alcoholic pancreatitis and hypertriglyceridemia Patient is n.p.o., IV fluids, follow-up lipase level in a.m. Will start TriCor when patient is able to tolerate p.o. intake 2. Hypertriglyceridemia As above 3. Alcoholic use Started patient on banana bag, Librium, Ativan as needed Monitor for DTs 4. Anion gap metabolic acidosis Likely secondary to #1, continue aggressive IV fluids 5. Leukocytosis: Likely secondary to #1, reactive Continue Zosyn prophylactically We will continue monitor patient closely for recommendation management treatment as clinical course Problems: Subjective 24 Hr Interval Summary Free Text/Dictation Patient continues to complain of having abdominal discomfort Denies of any chest pain or shortness of breath N.p.o. Diagnosis and treatment was discussed with the patient Exam/Review of Systems Vital Signs Vitals Vital Signs Date Time Temp Pulse Resp B/P Pulse Ox O2 Delivery O2 Flow Rate FiO2 02/20/17 08:00 76 02/20/17 08:00 99.3 14 132/89 97 Room Air Intake and Output 02/19/17 02/19/17 02/20/17 15:00 23:00 07:00 Intake Total 1216 ml 1616 ml 1816 ml Output Total 300 ml 350 ml 780 ml Balance 916 ml 1266 ml 1036 ml Exam General: The patient is well-developed, Not in acute distress. HEENT: Atraumatic, normocephalic. The pupils are equal and round . Neck: Supple with full range of motion. Chest: Normal expansion of the thorax during inspiration Lungs: Clear to auscultation bilaterally Heart: Normal S1-S2, Regular rhythm and rate. Abdomen: Soft , nontender, nondistended , bowel sounds are present. Extremities: Normal to inspection, no edema no cyanosis Neurologic: Normal mental status,The patient is awake, alert and oriented . Results Result Diagram: 02/20/17 0450 02/20/17 0450 Results 24 hrs Laboratory Tests Test 02/19/17 10:17 02/19/17 11:20 02/19/17 12:19 02/19/17 12:48 Bedside Glucose 157 155 158 148 Test 02/19/17 13:53 02/19/17 15:11 02/19/17 16:12 02/19/17 17:59 Bedside Glucose 132 139 131 135 Test 02/19/17 20:00 02/19/17 21:54 02/19/17 23:51 02/20/17 02:30 Bedside Glucose 144 141 167 178 Test 02/20/17 03:59 02/20/17 04:50 02/20/17 05:53 02/20/17 07:57 Bedside Glucose 139 129 128 White Blood Count 10.4 Red Blood Count 3.92 L Hemoglobin 11.9 L Hematocrit 34.6 L Mean Corpuscular Volume 88.3 Mean Corpuscular Hemoglobin 30.4 Mean Corpuscular Hemoglobin Concent 34.4 Red Cell Distribution Width 13.2 Platelet Count 149 # Mean Platelet Volume 10.7 H Neutrophils % 78.7 H Lymphocytes % 11.8 L Monocytes % 6.6 Eosinophils % 2.0 Basophils % 0.3 Nucleated Red Blood Cells % 0.0 Neutrophils # 8.2 H Lymphocytes # 1.2 Monocytes # 0.7 Eosinophils # 0.2 Basophils # 0.0 Nucleated Red Blood Cells # 0.0 Sodium Level 143 Potassium Level 3.8 Chloride Level 104 Carbon Dioxide Level 26 Anion Gap 17 H Blood Urea Nitrogen 9 Creatinine 0.89 Glucose Level 143 Calcium Level 8.8 Phosphorus Level 3.7 Magnesium Level 2.1 C-Reactive Protein 16.8 H Triglycerides Level 611 H Cholesterol Level 316 H LDL Cholesterol, Calculated 171 # HDL Cholesterol 23 L Cholesterol/HDL Ratio 13.7 Test 02/20/17 10:04 Bedside Glucose 131 Medications Medications Current Medications Ondansetron HCl (Zofran Inj) 4 mg Q6H PRN IV NAUSEA AND/OR VOMITING Last administered on 02/19/17 21:01; Admin Dose 4 MG; Start 02/17/17 at 16:30 Pantoprazole (Protonix Iv) 40 mg DAILY@06 IV Last administered on 02/20/17 05: 53; Admin Dose 40 MG; Start 02/17/17 at 16:30 Hydralazine HCl (Apresoline) 10 mg Q4H PRN IV SBP>160; Start 02/17/17 at 16:30 Morphine Sulfate 4 mg 4 mg Q4H PRN IV SEVERE PAIN LEVEL 7-10 Last administered on 02/19/17 21:51; Admin Dose 4 MG; Start 02/17/17 at 20:30 Piperacillin Sod/ Tazobactam Sod (Zosyn 3.375gm/ 100 ml (Pmx)) 100 ml @ 200 mls /hr Q6 IVPB Last administered on 02/20/17 05:53; Admin Dose 200 MLS/HR; Start 02/18/17 at 14:00 Acetaminophen 650 mg 650 mg Q6H PRN [place] FEVER OR MILD PAIN Last administered on 02/18/17 14:50; Admin Dose 650 MG; Start 02/18/17 at 14:30 Sodium Chloride (NS) 1,000 ml @ 100 mls/hr Q10H IV Last administered on 08:04; Admin Dose 100 MLS/HR; Start 02/19/17 at 11:30 Acetaminophen (Tylenol Tab) 650 mg Q6H PRN PO PAIN AND OR ELEVATED TEMP Last administered on 02/19/17 21:01; Admin Dose 650 MG; Start 02/19/17 at 20:30 Miscellaneous Information (* Miscellaneous Pharmacy Order) Discontinue current oral sulfonylur... ONCE ONCE XX ; Start 02/20/17 at 10:30; Stop 02/20/17 at 10: 31 Diagnostic Test (Pha) (Accu-Chek) 1 ea 02 XX ; Start 02/21/17 at 02:00 Miscellaneous Information (* Miscellaneous Pharmacy Order) HYPOGLYCEMIA PROTOCOL w... ONCE ONCE XX ; Start 02/20/17 at 10:30; Stop 02/20/17 at 10:31 Insulin Aspart (Novolog Insulin Pen) NOVOLOG *MILD* ALGORI... Q4 SC ; Start at 13:00 Miscellaneous Information (* Miscellaneous Pharmacy Order) Discontinue all previ... ONCE ONCE XX ; Start 02/20/17 at 10:30; Stop 02/20/17 at 10:31 Miscellaneous Information 1 ea NOTE XX ; Start 02/20/17 at 10:30 Glucose (Glutose) 15 gm Q15M PRN PO DECREASED GLUCOSE; Start 02/20/17 at 10:30 Glucose (Glutose) 22.5 gm Q15M PRN PO DECREASED GLUCOSE; Start 02/20/17 at 10: 30 Dextrose (D50w Syringe) 25 ml Q15M PRN IV DECREASED GLUCOSE; Start 02/20/17 at 10:30 Dextrose (D50w Syringe) 50 ml Q15M PRN IV DECREASED GLUCOSE; Start 02/20/17 at 10:30 Glucagon (Glucagen) 1 mg Q15M PRN IM DECREASED GLUCOSE; Start 02/20/17 at 10:30 Glucose (Glutose) 15 gm Q15M PRN BUCCAL DECREASED GLUCOSE; Start 02/20/17 at 10 :30 NAVIN WATT MD Feb 20, 2017 10:15
[2017-02-20] MEDS ORDERED: LORAZEPAM 2 MG INJ IV PRN (10:30)
[2017-02-20] MEDS ORDERED: DEXTROSE 50% 50 ML SYRINGE IV PRN ×2 (10:30)
[2017-02-20] MEDS ORDERED: GLUCOSE GEL 15 GRAM TUBE PO PRN ×2 (10:30)
[2017-02-20] MEDS ORDERED: GLUCOSE GEL 15 GRAM TUBE BUCCAL PRN (10:30)
[2017-02-20] MEDS ORDERED: GLUCAGON 1 MG INJ IM PRN (10:30)
[2017-02-20] MEDS: INSULIN ASPART [NOVOLOG] 3 ML PEN SC SCH ×3 (12:42→21:00)
--- NOTE | 2017-02-20 15:28 | PN ---
Date/Time of Note Date/Time of Note DATE: 02/20/17 TIME: 15:24 Assessment/Plan VTE Prophylaxis VTE Prophylaxis Intervention: SCD's Lines/Catheters IV Catheter Type (from Nrs): Peripheral IV Urinary Cath still in place: No Assessment/Plan Assessment/Plan 1. Acute hypertriglyceridemia and ETCH induced pancreatitis, improving clinically, advance diet 2. hypertriglyceridemia, will start lopid, diet 3. Alcohol use, no withdrawal symptoms 4. Anion gap metabolic acidosis, improving, follow up with BMP 5. Chart reviewed, case discussed with staff. Critical care time 45 minutes Subjective 24 Hr Interval Summary Free Text/Dictation no abdominal pain, no nausea or vomiting todat. insulin drip is stopped Exam/Review of Systems Vital Signs Vitals Vital Signs Date Time Temp Pulse Resp B/P Pulse Ox O2 Delivery O2 Flow Rate FiO2 02/20/17 14:00 78 22 149/95 95 02/20/17 13:00 Room Air 02/20/17 12:00 98.4 Intake and Output 02/19/17 02/19/17 02/20/17 14:59 22:59 06:59 Intake Total 1116 ml 1616 ml 2018 ml Output Total 300 ml 350 ml 780 ml Balance 816 ml 1266 ml 1238 ml Exam Constitutional: alert, oriented, well developed Psych: nl mood/affect, no complaints Head: atraumatic, normocephalic Eyes: EOMI, PERRL, nl conjunctiva, nl lids, nl sclera ENMT: nl external ears & nose, nl lips & teeth, nl nasal mucosa & septum Neck: non-tender, supple Respiratory: clear to auscultation, normal air movement, No congested cough, No crackles/rales, No diminished breath sounds, No intercostal retraction, No labored breathing, No other, No respirations, No tactile fremitus, No wheezing Cardiovascular: nl pulses, regular rate and rhythm, No S3, No S4, No bruits, No diastolic murmur, No edema, No gallop, No irregular rhythm, No jugular venous distention (JVD), No murmurs/extra sounds, No other, No rub, No systolic murmur Gastrointestinal: nl liver, spleen, non-tender, soft, No ascites, No bowel sounds, No distended, No firm, No hepatomegaly, No mass , No other, No rebound or guarding, No splenomegaly, No surgical scars, No tender Musculoskeletal: nl extremities to inspection Extremities: normal pulses, No calf tenderness, No clubbing, No cyanosis, No edema, No other, No palpable cord, No pitting pedal edema, No tenderness Neurological: CHEESE CUTTER II-XII intact, nl mental status, nl speech, nl strength Skin: nl turgor Lymph: nl lymph nodes Results Result Diagram: 02/20/17 0450 02/20/17 0450 Results 24 hrs Laboratory Tests Test 02/19/17 16:12 02/19/17 17:59 02/19/17 20:00 02/19/17 21:54 Bedside Glucose 131 135 144 141 Test 02/19/17 23:51 02/20/17 02:30 02/20/17 03:59 02/20/17 04:50 Bedside Glucose 167 178 139 White Blood Count 10.4 Red Blood Count 3.92 L Hemoglobin 11.9 L Hematocrit 34.6 L Mean Corpuscular Volume 88.3 Mean Corpuscular Hemoglobin 30.4 Mean Corpuscular Hemoglobin Concent 34.4 Red Cell Distribution Width 13.2 Platelet Count 149 # Mean Platelet Volume 10.7 H Neutrophils % 78.7 H Lymphocytes % 11.8 L Monocytes % 6.6 Eosinophils % 2.0 Basophils % 0.3 Nucleated Red Blood Cells % 0.0 Neutrophils # 8.2 H Lymphocytes # 1.2 Monocytes # 0.7 Eosinophils # 0.2 Basophils # 0.0 Nucleated Red Blood Cells # 0.0 Sodium Level 143 Potassium Level 3.8 Chloride Level 104 Carbon Dioxide Level 26 Anion Gap 17 H Blood Urea Nitrogen 9 Creatinine 0.89 Glucose Level 143 Calcium Level 8.8 Phosphorus Level 3.7 Magnesium Level 2.1 C-Reactive Protein 16.8 H Triglycerides Level 611 H Cholesterol Level 316 H LDL Cholesterol, Calculated 171 # HDL Cholesterol 23 L Cholesterol/HDL Ratio 13.7 Test 02/20/17 05:53 02/20/17 07:57 02/20/17 10:04 02/20/17 12:41 Bedside Glucose 129 128 131 114 Medications Medications Current Medications Ondansetron HCl (Zofran Inj) 4 mg Q6H PRN IV NAUSEA AND/OR VOMITING Last administered on 02/19/17t 21:01; Admin Dose 4 MG; Start 02/17/17 at 16:30 Pantoprazole (Protonix Iv) 40 mg DAILY@06 IV Last administered on 02/20/17 05: 53; Admin Dose 40 MG; Start 02/17/17 at 16:30 Hydralazine HCl (Apresoline) 10 mg Q4H PRN IV SBP>160; Start 02/17/17 at 16:30 Morphine Sulfate 4 mg 4 mg Q4H PRN IV SEVERE PAIN LEVEL 7-10 Last administered on 02/19/17 21:51; Admin Dose 4 MG; Start 02/17/17 at 20:30 Piperacillin Sod/ Tazobactam Sod (Zosyn 3.375gm/ 100 ml (Pmx)) 100 ml @ 200 mls /hr Q6 IVPB Last administered on 02/20/17 12:42; Admin Dose 200 MLS/HR; Start 02/18/17 at 14:00 Acetaminophen 650 mg 650 mg Q6H PRN [place] FEVER OR MILD PAIN Last administered on 02/18/17 14:50; Admin Dose 650 MG; Start 02/18/17 at 14:30 Sodium Chloride (NS) 1,000 ml @ 100 mls/hr Q10H IV Last administered on 08:04; Admin Dose 100 MLS/HR; Start 02/19/17 at 11:30 Acetaminophen (Tylenol Tab) 650 mg Q6H PRN PO PAIN AND OR ELEVATED TEMP Last administered on 02/19/17 21:01; Admin Dose 650 MG; Start 02/19/17 at 20:30 Diagnostic Test (Pha) (Accu-Chek) 1 ea 02 XX ; Start 02/21/17 at 02:00 Insulin Aspart (Novolog Insulin Pen) NOVOLOG *MILD* ALGORI... Q4 SC ; Start at 13:00 Miscellaneous Information 1 ea NOTE XX ; Start 02/20/17 at 10:30 Glucose (Glutose) 15 gm Q15M PRN PO DECREASED GLUCOSE; Start 02/20/17 at 10:30 Glucose (Glutose) 22.5 gm Q15M PRN PO DECREASED GLUCOSE; Start 02/20/17 at 10: 30 Dextrose (D50w Syringe) 25 ml Q15M PRN IV DECREASED GLUCOSE; Start 02/20/17 at 10:30 Dextrose (D50w Syringe) 50 ml Q15M PRN IV DECREASED GLUCOSE; Start 02/20/17 at 10:30 Glucagon (Glucagen) 1 mg Q15M PRN IM DECREASED GLUCOSE; Start 02/20/17 at 10:30 Glucose 15 gm 15 gm Q15M PRN BUCCAL DECREASED GLUCOSE; Start 02/20/17 at 10:30 Multivitamins/ Thiamine HCl/ Folic Acid/Sodium Chloride (Mvi Adult/ Vitamin B1/ Folic Acid/NS) 1,011.2 ml @ 100 mls/ hr DAILY@09 IVPB ; Start 02/21/17 at 09:00 Lorazepam (Ativan) 0.5 mg Q6H PRN IV ANXIETY; Start 02/20/17 at 10:30 LATA WALDEN MD Feb 20, 2017 15:28
[2017-02-21] MEDS: INSULIN ASPART [NOVOLOG] 3 ML PEN SC SCH ×4 (01:00→12:30)
[2017-02-21] MEDS ORDERED: ACCU-CHEK XX SCH (02:00)
[2017-02-21 02:46] VITALS: BP 147/95; RESP 16
[2017-02-21] MEDS: PANTOPRAZOLE 40 MG INJ IV SCH (05:36)
[2017-02-21] MEDS: SOD CHLORIDE 0.9% 1,000 ML IV SCH ×3 (05:36→23:30)
[2017-02-21] MEDS: PIPER-TAZO 3.375 GM IV (PMX) 100 ML IVPB SCH ×3 (05:36→12:13)
[2017-02-21 06:15] LABS: BASOPHILS % 0.3 % (0.0-2.0); EOSINOPHILS # 0.3 10^3/ul (0.0-0.5); EOSINOPHILS % 4.5 % (0.0-7.0); HEMATOCRIT 33.8 % (42.0-52.0); HEMOGLOBIN 11.6 g/dl (14.0-18.0); LYMPHOCYTES # 1.2 10^3/ul (0.8-2.9); LYMPHOCYTES % 18.5 % (15.0-51.0); MEAN CORPUSCULAR HEMOGLOBIN 30.3 pg (29.0-33.0); MEAN CORPUSCULAR HGB CONC 34.3 g/dl (32.0-37.0); MEAN CORPUSCULAR VOLUME 88.3 fl (82.0-101.0); MEAN PLATELET VOLUME 10.5 fl (7.4-10.4); MONOCYTE # 0.6 10^3/ul (0.3-0.9); MONOCYTES % 8.7 % (0.0-11.0); NEUTROPHIL # 4.5 10^3/ul (1.6-7.5); NEUTROPHILS % 67.4 % (39.0-77.0); PLATELET COUNT 139 10^3/UL (140-415); RED BLOOD COUNT 3.83 10^6/ul (4.70-6.10); RED CELL DISTRIBUTION WIDTH 12.9 % (11.5-14.5); WHITE BLOOD COUNT 6.7 10^3/ul (4.8-10.8)
[2017-02-21 06:57] LABS: ALBUMIN 3.2 g/dl (3.3-4.9); ALBUMIN/GLOBULIN RATIO 1.1; BILIRUBIN,INDIRECT 0.5 mg/dl (0-1.1); BILIRUBIN,TOTAL 0.5 mg/dl (0.2-1.3); CALCIUM 8.9 mg/dl (8.4-10.2); CREATININE 0.89 mg/dl (0.61-1.24); POTASSIUM 3.7 mmol/L (3.5-5.1); TOTAL PROTEIN 6.1 g/dl (6.1-8.1)
[2017-02-21 07:03] LABS: CALCIUM 8.9 mg/dl (8.4-10.2); CREATININE 0.92 mg/dl (0.61-1.24); POTASSIUM 3.9 mmol/L (3.5-5.1)
[2017-02-21 07:52] VITALS: BP 150/99; RESP 18
[2017-02-21] MEDS: MULTIVITAMINS 10 ML, THIAMINE 100 MG, FOLIC ACID 1 MG in SOD CHLORIDE 0.9% 1,000 ML IVPB SCH (08:07)
[2017-02-21 15:05] VITALS: BP 138/92; RESP 16
--- NOTE | 2017-02-21 15:18 | PN ---
Date/Time of Note Date/Time of Note DATE: 02/21/17 TIME: 15:16 Assessment/Plan VTE Prophylaxis VTE Prophylaxis Intervention: SCD's Lines/Catheters IV Catheter Type (from Nrs): Peripheral IV Urinary Cath still in place: No Assessment/Plan Assessment/Plan 1. Acute hypertriglyceridemia and ETCH induced pancreatitis, improving, advance diet 2. hypertriglyceridemia, will start lopid, diet 3. Alcohol use, no withdrawal symptoms 4. Anion gap metabolic acidosis, improved Subjective 24 Hr Interval Summary Free Text/Dictation no abdominal pain, no nausea or vomiting Exam/Review of Systems Vital Signs Vitals Vital Signs Date Time Temp Pulse Resp B/P Pulse Ox O2 Delivery O2 Flow Rate FiO2 02/21/17 15:05 98.6 66 16 138/92 96 02/20/17 16:00 Room Air Intake and Output 02/20/17 02/20/17 02/21/17 15:00 23:00 07:00 Intake Total 956 ml 320 ml 1680 ml Output Total 0 ml 325 ml 750 ml Balance 956 ml -5 ml 930 ml Exam Constitutional: alert, oriented, well developed Psych: nl mood/affect, no complaints Head: atraumatic, normocephalic Eyes: EOMI, PERRL, nl conjunctiva, nl lids ENMT: nl external ears & nose, nl lips & teeth, nl nasal mucosa & septum Neck: non-tender, supple Respiratory: clear to auscultation, normal air movement, No congested cough, No crackles/rales, No diminished breath sounds, No intercostal retraction, No labored breathing, No other, No respirations, No tactile fremitus, No wheezing Cardiovascular: nl pulses, regular rate and rhythm, No S3, No S4, No bruits, No diastolic murmur, No edema, No gallop, No irregular rhythm, No jugular venous distention (JVD), No murmurs/extra sounds, No other, No rub, No systolic murmur Gastrointestinal: nl liver, spleen, non-tender, soft, No ascites, No bowel sounds, No distended, No firm, No hepatomegaly, No mass , No other, No rebound or guarding, No splenomegaly, No surgical scars, No tender Musculoskeletal: nl extremities to inspection Extremities: normal pulses, No calf tenderness, No clubbing, No cyanosis, No edema, No other, No palpable cord, No pitting pedal edema, No tenderness Neurological: GRANT COORDINATOR II-XII intact, nl mental status, nl speech, nl strength Skin: nl turgor Lymph: nl lymph nodes Results Result Diagram: 02/21/17 0538 02/21/17 0538 Results 24 hrs Laboratory Tests Test 02/20/17 16:27 02/20/17 18:02 02/20/17 21:39 02/21/17 00:51 Bedside Glucose 119 120 133 107 Test 02/21/17 05:35 02/21/17 05:38 02/21/17 09:16 02/21/17 10:04 Bedside Glucose 126 136 White Blood Count 6.7 # Red Blood Count 3.83 L Hemoglobin 11.6 L Hematocrit 33.8 L Mean Corpuscular Volume 88.3 Mean Corpuscular Hemoglobin 30.3 Mean Corpuscular Hemoglobin Concent 34.3 Red Cell Distribution Width 12.9 Platelet Count 139 L Mean Platelet Volume 10.5 H Neutrophils % 67.4 Lymphocytes % 18.5 Monocytes % 8.7 Eosinophils % 4.5 Basophils % 0.3 Nucleated Red Blood Cells % 0.0 Neutrophils # 4.5 Lymphocytes # 1.2 Monocytes # 0.6 Eosinophils # 0.3 Basophils # 0.0 Nucleated Red Blood Cells # 0.0 Sodium Level 144 Potassium Level 3.9 Chloride Level 106 Carbon Dioxide Level 26 Anion Gap 16 Blood Urea Nitrogen 12 Creatinine 0.92 Glucose Level 119 Lactic Acid Level 1.0 Calcium Level 8.9 Magnesium Level 2.0 Total Bilirubin 0.5 Direct Bilirubin 0.00 Indirect Bilirubin 0.5 Aspartate Amino Transf (AST/SGOT) 17 Alanine Aminotransferase (ALT/SGPT) 33 Alkaline Phosphatase 48 Total Protein 6.1 Albumin 3.2 L Globulin 2.90 Albumin/Globulin Ratio 1.10 Triglycerides Level 522 H Lipase 135 Lab Scanned Report REFERENCE LAB Test 02/21/17 12:20 Bedside Glucose 124 Medications Medications Current Medications Ondansetron HCl (Zofran Inj) 4 mg Q6H PRN IV NAUSEA AND/OR VOMITING Last administered on 02/19/17 21:01; Admin Dose 4 MG; Start 02/17/17 at 16:30 Pantoprazole (Protonix Iv) 40 mg DAILY@06 IV Last administered on 02/21/17 05: 36; Admin Dose 40 MG; Start 02/17/17 at 16:30 Hydralazine HCl (Apresoline) 10 mg Q4H PRN IV SBP>160; Start 02/17/17 at 16:30 Morphine Sulfate 4 mg 4 mg Q4H PRN IV SEVERE PAIN LEVEL 7-10 Last administered on 02/19/17 21:51; Admin Dose 4 MG; Start 02/17/17 at 20:30 Piperacillin Sod/ Tazobactam Sod (Zosyn 3.375gm/ 100 ml (Pmx)) 100 ml @ 200 mls /hr Q6 IVPB Last administered on 02/21/17 12:13; Admin Dose 200 MLS/HR; Start 02/18/17 at 14:00 Acetaminophen 650 mg 650 mg Q6H PRN [place] FEVER OR MILD PAIN Last administered on 02/18/17 14:50; Admin Dose 650 MG; Start 02/18/17 at 14:30 Sodium Chloride (NS) 1,000 ml @ 100 mls/hr Q10H IV Last administered on 05:36; Admin Dose 100 MLS/HR; Start 02/19/17 at 11:30 Acetaminophen (Tylenol Tab) 650 mg Q6H PRN PO PAIN AND OR ELEVATED TEMP Last administered on 02/19/17 21:01; Admin Dose 650 MG; Start 02/19/17 at 20:30 Diagnostic Test (Pha) (Accu-Chek) 1 ea 02 XX Last administered on 02/21/17 01: 39; Admin Dose 1 EA; Start 02/21/17 at 02:00 Insulin Aspart (Novolog Insulin Pen) NOVOLOG *MILD* ALGORI... Q4 SC ; Start at 13:00 Miscellaneous Information 1 ea NOTE XX ; Start 02/20/17 at 10:30 Glucose (Glutose) 15 gm Q15M PRN PO DECREASED GLUCOSE; Start 02/20/17 at 10:30 Glucose (Glutose) 22.5 gm Q15M PRN PO DECREASED GLUCOSE; Start 02/20/17 at 10: 30 Dextrose (D50w Syringe) 25 ml Q15M PRN IV DECREASED GLUCOSE; Start 02/20/17 at 10:30 Dextrose (D50w Syringe) 50 ml Q15M PRN IV DECREASED GLUCOSE; Start 02/20/17 at 10:30 Glucagon (Glucagen) 1 mg Q15M PRN IM DECREASED GLUCOSE; Start 02/20/17 at 10:30 Glucose 15 gm 15 gm Q15M PRN BUCCAL DECREASED GLUCOSE; Start 02/20/17 at 10:30 Multivitamins/ Thiamine HCl/ Folic Acid/Sodium Chloride (Mvi Adult/ Vitamin B1/ Folic Acid/NS) 1,011.2 ml @ 100 mls/ hr DAILY@09 IVPB Last administered on t 08:07; Admin Dose 100 MLS/HR; Start 02/21/17 at 09:00 Lorazepam (Ativan) 0.5 mg Q6H PRN IV ANXIETY; Start 02/20/17 at 10:30 LATA WALDEN MD Feb 21, 2017 15:18
[2017-02-21 19:59] VITALS: BP 152/95; PULSE 69; RESP 18
[2017-02-21 20:00] VITALS: BP 152/95; RESP 18
[2017-02-21] MEDS: ACETAMINOPHEN 325 MG TAB PO PRN (20:07)
[2017-02-22 02:00] VITALS: BP 146/93; RESP 18
[2017-02-22] MEDS: SOD CHLORIDE 0.9% 1,000 ML IV SCH ×2 (04:34→09:22)
[2017-02-22] MEDS: PANTOPRAZOLE 40 MG INJ IV SCH (06:08)
[2017-02-22 06:15] LABS: BASOPHILS % 0.5 % (0.0-2.0); EOSINOPHILS # 0.4 10^3/ul (0.0-0.5); EOSINOPHILS % 5.8 % (0.0-7.0); HEMATOCRIT 33.8 % (42.0-52.0); HEMOGLOBIN 11.5 g/dl (14.0-18.0); LYMPHOCYTES # 1.6 10^3/ul (0.8-2.9); LYMPHOCYTES % 26.4 % (15.0-51.0); MEAN CORPUSCULAR HEMOGLOBIN 29.9 pg (29.0-33.0); MEAN CORPUSCULAR VOLUME 87.8 fl (82.0-101.0); MEAN PLATELET VOLUME 10.1 fl (7.4-10.4); MONOCYTE # 0.6 10^3/ul (0.3-0.9); MONOCYTES % 9.5 % (0.0-11.0); NEUTROPHIL # 3.4 10^3/ul (1.6-7.5); NEUTROPHILS % 57.1 % (39.0-77.0); PLATELET COUNT 156 10^3/UL (140-415); RED BLOOD COUNT 3.85 10^6/ul (4.70-6.10); RED CELL DISTRIBUTION WIDTH 12.9 % (11.5-14.5)
[2017-02-22 06:42] LABS: ALBUMIN 3.5 g/dl (3.3-4.9); ALBUMIN/GLOBULIN RATIO 1.2; BILIRUBIN,INDIRECT 0.3 mg/dl (0-1.1); BILIRUBIN,TOTAL 0.3 mg/dl (0.2-1.3); CALCIUM 8.8 mg/dl (8.4-10.2); CREATININE 0.9 mg/dl (0.61-1.24); MAGNESIUM 1.9 mg/dl (1.7-2.5); POTASSIUM 3.9 mmol/L (3.5-5.1); TOTAL PROTEIN 6.4 g/dl (6.1-8.1)
[2017-02-22 06:45] LABS: CALCIUM 8.9 mg/dl (8.4-10.2); CREATININE 0.91 mg/dl (0.61-1.24); POTASSIUM 3.7 mmol/L (3.5-5.1)
[2017-02-22 07:50] VITALS: BP 157/99; RESP 18
[2017-02-22] MEDS: MULTIVITAMINS 10 ML, THIAMINE 100 MG, FOLIC ACID 1 MG in SOD CHLORIDE 0.9% 1,000 ML IVPB SCH (09:22)
[2017-02-22 10:17] VITALS: BP 157/96; PULSE 62
--- NOTE | 2017-02-22 15:01 | DS ---
Date/Time of Note Date/Time of Note DATE: 02/22/17 TIME: 14:52 Discharge Summary Admission/Discharge Info Admit Date/Time Feb 17, 2017 at 15:34 Discharge Date/Time Discharge Diagnosis 1. Acute hypertriglyceridemia and ETOH induced pancreatitis, improved 2. hypertriglyceridemia, diet control, follow up with PCP in two weeks 3. Alcohol use, no withdrawal symptoms 4. Anion gap metabolic acidosis, improved Patient Condition: Stable Hx of Present Illness Patient is a 46-year-old male with no significant past medical history except for frequent alcohol use who presents to [facility] for approximately 5 day history of epigastric abdominal pain patient denies any nausea or vomiting however does state that the pain has been worsening since Monday. Patient states that he drinks fairly heavily Monday and Monday and that is when the pain started. Hospital Course On admission lipase was 1413, triglyceride was 1575. CT scan revealed acute pancreatitis, hepatosplenomegaly with fatty infiltration of the liver, and appendicolith in the appendix which is otherwise normal. Patient was treated with NPO, IVF, pain management, and insulin drip that significantly improved his symptoms. Patient tolerates diet well, no abdominal pain. He is instructed to quit ETOH, follow up with PCP for triqlyceride level to decide whether he needs treatment other than diet control. Last TG level is 522 on 02/21/2017. Home Meds Discontinued Reported Medications Naproxen* (Naproxen*) 500 Mg Tablet, 1000 MG PO BID, TAB 02/17/17 Discontinued Scripts Meclizine Hcl* (Antivert*) 25 Mg Tablet, 25 MG PO Q6H Y for DIZZINESS, #30 TAB Prov:JANEL PINEDA MD 03/12/16 Follow-up Plan PCP in two weeks to repeat lipid panel Primary Care Provider Care Physician No Primary Pending Labs Laboratory Tests Test 02/22/17 05:37 White Blood Count 6.010^3/ul (4.8-10.8) Red Blood Count 3.8510^6/ul (4.70-6.10) Hemoglobin 11.5g/dl (14.0-18.0) Hematocrit 33.8% (42.0-52.0) Mean Corpuscular Volume 87.8fl (82.0-101.0) Mean Corpuscular Hemoglobin 29.9pg (29.0-33.0) Mean Corpuscular Hemoglobin Concent 34.0g/dl (32.0-37.0) Red Cell Distribution Width 12.9% (11.5-14.5) Platelet Count 01930^3/UL (140-415) Mean Platelet Volume 10.1fl (7.4-10.4) Neutrophils % 57.1% (39.0-77.0) Lymphocytes % 26.4% (15.0-51.0) Monocytes % 9.5% (0.0-11.0) Eosinophils % 5.8% (0.0-7.0) Basophils % 0.5% (0.0-2.0) Nucleated Red Blood Cells % 0.0/100WBC (0.0-0.0) Neutrophils # 3.410^3/ul (1.6-7.5) Lymphocytes # 1.610^3/ul (0.8-2.9) Monocytes # 0.610^3/ul (0.3-0.9) Eosinophils # 0.410^3/ul (0.0-0.5) Basophils # 0.010^3/ul (0.0-0.1) Nucleated Red Blood Cells # 0.010^3/ul (0.0-0.0) Sodium Level 145mmol/L (135-144) Potassium Level 3.7mmol/L (3.5-5.1) Chloride Level 106mmol/L (97-110) Carbon Dioxide Level 27mmol/L (21-31) Anion Gap 16 (8-16) Blood Urea Nitrogen 12mg/dl (7-20) Creatinine 0.91mg/dl (0.61-1.24) Glucose Level 124mg/dl (70-220) Calcium Level 8.9mg/dl (8.4-10.2) Magnesium Level 1.9mg/dl (1.7-2.5) Total Bilirubin 0.3mg/dl (0.2-1.3) Direct Bilirubin 0.00mg/dl (0.00-0.20) Indirect Bilirubin 0.3mg/dl (0-1.1) Aspartate Amino Transf (AST/SGOT) 24IU/L (15-46) Alanine Aminotransferase (ALT/SGPT) 44IU/L (13-69) Alkaline Phosphatase 48IU/L (42-121) Total Protein 6.4g/dl (6.1-8.1) Albumin 3.5g/dl (3.3-4.9) Globulin 2.90g/dl (1.3-3.2) Albumin/Globulin Ratio 1.20 Lipase 224U/L (23-300) LATA WALDEN MD Feb 22, 2017 15:01
[2017-02-22 15:21] VITALS: BP 150/93; RESP 18
--- NOTE | 2017-02-22 22:16 | RADRPT ---
Vent Rate: 80 bpm RR Interval: 0 msec VA Interval: 136 msec QRS Duration: 88 msec QT Interval: 360 msec QTC Interval: 415 msec P-R-T [place]: 35 - 36 - 26 degrees Normal sinus rhythm Normal ECG Electronically Signed By: Torito Hester [id number]
== END 2017-02-22 16:30 | disposition home or self-care (01) | DRG 439 ==
LOC: FTE 11:36 → PP2 15:34 → ICU 02-18 13:22 → MS2 02-20 16:55
PROVIDERS: ADMIT Internal Medicine; ATTEND Internal Medicine
DX: K85.20 Alcohol induced acute pancreatitis without necrosis or infection (principal); E87.2 Acidosis; E78.1 Pure hyperglyceridemia; I10 Essential (primary) hypertension; R16.2 Hepatomegaly with splenomegaly, not elsewhere classified; F10.10 Alcohol abuse, uncomplicated
CPT/HCPCS: 36600; 74176; 80048; 80053; 80061; 80076; 80306; 81001; 82803; 82962; 83036; 83605; 83690; 83735; 84100; 84478; 85025; 86140; 87040; 87081; 93005; C9113; J1170; J1815; J2270; J2405; J2543; J3411; J7030; J7042

== ENCOUNTER 2018-04-17 16:42 | Emergency (ER) | END 2018-04-17 17:33 | disposition home or self-care (01) ==

== ENCOUNTER 2018-05-01 16:37 | Emergency (ER) | END 2018-05-01 20:27 | disposition home or self-care (01) ==

== ENCOUNTER 2018-05-06 15:13 | Emergency (ER) | END 2018-05-06 18:55 | disposition home or self-care (01) ==

== ENCOUNTER 2019-04-17 14:03 | Emergency (ER) | payer MEDICAID ==
[~2019-04-17] VITALS: Ht 160 cm; Wt 78.0 kg
[~2019-04-17 14:03] MED LIST changes: +ACET500C5 PO; +AMOX1TAB9 PO; +HYDR-3601 PO; +HYDR25TA6 PO; +MECL12.574 PO; -MECL25TA2 PO; +METF500T24 PO; +ONDA4TAB14 PO
[2019-04-17 14:05] VITALS: Ht 160 cm; Wt 78.0 kg
[2019-04-17 16:12] VITALS: BP 153/96; PULSE 73; RESP 18
== END 2019-04-17 16:32 | disposition home or self-care (01) ==
LOC: E/R 14:03
DX: R10.13 Epigastric pain (principal)
CPT/HCPCS: 36415; 74176; 80053; 81001; 83690; 85025; Z7502